=== PATIENT | male | born 1980 | race American Indian/Alaskan Native ===

== ENCOUNTER 2021-09-22 02:14 | Emergency (ER) | payer MEDICAID ==
[2021-09-22] MEDS ORDERED: ONDANSETRON 4 MG ODT TAB PO ONE (02:56)
[2021-09-22 03:39] LABS: BUN/Creatinine Ratio 15; Blood Urea Nitrogen 26 mg/dL (9-20); Calcium 9.5 mg/dL (8.4-10.2); Hemolysis Index 5
[2021-09-22 04:45] LABS: Basophils % (Auto) 0.5 % (0.0-1.8); Eosinophils # (Auto) 0.2 K/mm3 (0.0-0.4); Eosinophils % (Auto) 2.2 % (0.0-4.3); Hematocrit 44.8 % (35.5-45.6); Hemoglobin 14.2 gm/dl (11.8-15.2); Lymphocytes # (Auto) 0.8 K/mm3 (1.2-5.4); Lymphocytes % (Auto) 11.7 % (13.4-35.0); Mean Corpuscular HGB Conc 32 % (32-34); Mean Corpuscular Volume 90 fl (84-94); Monocytes # (Auto) 0.6 K/mm3 (0.0-0.8); Monocytes % (Auto) 9.1 % (0.0-7.3); Platelet Count 205 K/mm3 (140-440); Red Blood Count 4.96 M/mm3 (3.65-5.03)
--- NOTE | 2021-09-22 05:07 | Emergency Department Report ---
ED N/V/D HPI - General Chief complaint: Nausea/Vomiting/Diarrhea Stated complaint: NAUSEA AND VOMITING X 2 DAYS PUI?: No Time Seen by Provider: 09/22/21 02:51 Source: EMS Mode of arrival: Stretcher Limitations: No Limitations - History of Present Illness Initial comments: Chief complaint: I have not been doing right. I am eating the wrong food. HPI: This is a 40-year-old male with history of hypertension, BMI 48 presents with syncope nausea vomiting for several days. Patient syncopal episode this evening. He had nausea vomiting for the last 2 days. He denies headache, fever, chest pain, abdominal pain. He is symptom-free at this time. He is noncompliant with with blood pressure medication. He arrived via EMS. MD complaint: nausea, vomiting -: Gradual, days(s) (2 days) Description of Vomiting: food contents Associated Abdominal Pain: No Severity: mild Consistency: now resolved Improves with: none Worsens with: none Context: possible food poisoning Associated Symptoms: other (Syncope) - Related Data Previous Rx's Medication Instructions Recorded Last Taken Type Promethazine [Phenergan] 25 mg PO Q6HR PRN #10 tab 09/22/21 Unknown Rx Valsartan 80 mg PO DAILY #30 tablet 09/22/21 Unknown Rx amLODIPine 5 mg PO DAILY #30 tab 09/22/21 Unknown Rx Allergies Allergy/AdvReac Type Severity Reaction Status Date / Time No Known Allergies Allergy Verified 09/22/21 02:18 ED Review of Systems ROS: Stated complaint: NAUSEA AND VOMITING X 2 DAYS Other details as noted in HPI Comment: All other systems reviewed and negative Constitutional: denies: chills, fever, malaise Respiratory: denies: cough Cardiovascular: denies: chest pain Gastrointestinal: nausea, vomiting. denies: abdominal pain, diarrhea ED Past Medical Hx - Past Medical History Previous Medical History?: Yes Hx Hypertension: Yes - Surgical History Past Surgical History?: Yes Additional Surgical History: LOWER BACK - Social History Smoking Status: Never Smoker Substance Use Type: None - Medications Home Medications: Home Medications Medication Instructions Recorded Confirmed Last Taken Type Promethazine [Phenergan] 25 mg PO Q6HR PRN #10 tab 09/22/21 Unknown Rx Valsartan 80 mg PO DAILY #30 tablet 09/22/21 Unknown Rx amLODIPine 5 mg PO DAILY #30 tab 09/22/21 Unknown Rx ED Physical Exam - General Limitations: No Limitations General appearance: alert, in no apparent distress - Head Head exam: Present: atraumatic, normocephalic - Eye Eye exam: Present: normal appearance - ENT ENT exam: Present: mucous membranes moist - Neck Neck exam: Present: normal inspection, full ROM - Respiratory Respiratory exam: Present: normal lung sounds bilaterally. Absent: respiratory distress, wheezes, rales, rhonchi - Cardiovascular Cardiovascular Exam: Present: regular rate, normal rhythm, normal heart sounds. Absent: systolic murmur, diastolic murmur, rubs, gallop - GI/Abdominal GI/Abdominal exam: Present: soft, normal bowel sounds. Absent: distended, tenderness, guarding, rebound - Rectal Rectal exam: Present: deferred - Extremities Exam Extremities exam: Present: normal inspection - Neurological Exam Neurological exam: Present: alert, oriented X3 - Psychiatric Psychiatric exam: Present: normal affect, normal mood - Skin Skin exam: Present: warm, dry, intact, normal color. Absent: rash ED Course Vital Signs 09/22/21 09/22/21 09/22/21 02:19 03:34 03:46 Temperature 98.3 F Pulse Rate 106 H 96 H Respiratory 20 17 Rate Blood Pressure 196/129 223/158 Blood Pressure 195/139 [Left] O2 Sat by Pulse 95 95 92 Oximetry 09/22/21 09/22/21 04:00 04:29 Temperature Pulse Rate 95 H Respiratory 28 H Rate Blood Pressure 199/136 Blood Pressure 188/128 [Left] O2 Sat by Pulse 96 Oximetry ED Medical Decision Making - Lab Data Result diagrams: 09/22/21 03:08 09/22/21 03:08 Laboratory Results - last 24 hr 09/22/21 09/22/21 03:08 03:08 WBC 7.2 RBC 4.96 Hgb 14.2 Hct 44.8 MCV 90 MCH 29 MCHC 32 RDW 16.0 H Plt Count 205 Lymph % (Auto) 11.7 L [place] % (Auto) 9.1 H Eos % (Auto) 2.2 Baso % (Auto) 0.5 Lymph # (Auto) 0.8 L [place] # (Auto) 0.6 Eos # (Auto) 0.2 Baso # (Auto) 0.0 Seg Neutrophils % 76.5 H Seg Neutrophils # 5.5 Sodium 139 Potassium 5.1 H Chloride 101.5 Carbon Dioxide 26 Anion Gap 17 BUN 26 H Creatinine 1.7 H Estimated GFR 45 BUN/Creatinine Ratio 15 Glucose 100 Calcium 9.5 Troponin T < 0.010 Lipase 15 - EKG Data -: EKG Interpreted by Me EKG shows normal: sinus rhythm, axis Rate: normal - EKG Data 09/22/21 05:06 EKG obtained 0424 EKG interpreted me Rate 75 bpm normal sinus rhythm normal axis normal intervals no ST elevation nonischemic T wave pattern - Medical Decision Making Vasovagal syncope: No evidence of ischemia or infarct on EKG. Do not suspect pulmonary embolism or ACS. PERC negative. Nausea vomiting presumably due to IBS versus food poisoning. Prescribed promethazine. Hypertensive urgency due to medication noncompliance with prescribed valsartan amlodipine CBC chemistry within normal limits Critical care attestation.: If time is entered above; I have spent that time in minutes in the direct care of this critically ill patient, excluding procedure time. ED Disposition Clinical Impression: Vasovagal syncope, Hypertensive urgency, Food poisoning Disposition: 01 HOME / SELF CARE / HOMELESS Is pt being admited?: No Does the pt Need Aspirin: No Condition: Stable Instructions: Syncope (ED), Food Poisoning, Syncope, [id number], Hypertension, Adult Prescriptions: amLODIPine 5 mg PO DAILY #30 tab Promethazine [Phenergan] 25 mg PO Q6HR PRN #10 tab PRN Reason: Nausea Valsartan 80 mg PO DAILY #30 tablet Referrals: ROSENDO DESHPANDE B [Other] - 3-5 Days CATIE MIDDLETON MD [Staff Physician] - 3-5 Days
[2021-09-22 06:20] VITALS: BP 176/122
--- NOTE | 2021-09-22 11:43 | Electrocardiograph Report ---
[facility] Test Date: 2021-09-22 Test Time: 04:24:02 Pat Name: ISA CASTELLANOS Department: ED Room: ED Gender: M Diagrammer: : 1980 Requested By: SAMMY CANDELARIA Order Number: [id number] Reading MD: Baljit Schneider Measurements Intervals [place] Rate: 75 P: 54 NM: 185 QRS: 76 QRSD: 93 T: 40 QT: 386 QTc: 432 Interpretive Statements Sinus rhythm Probable left atrial enlargement ST elevation suggests acute pericarditis No previous ECG available for comparison Electronically Signed On 09-22-2021 11:43:09 EST by Baljit Schneider
== END 2021-09-22 06:35 | disposition home or self-care (01) ==
LOC: ED 02:14
DX: R55 Syncope and collapse (principal); I10 Essential (primary) hypertension; A05.9 Bacterial foodborne intoxication, unspecified
CPT/HCPCS: 36415; 80048; 83690; 84484; 85025; 93005; 99283; J3490; Q0162